=== PATIENT | female | born 1975 | race Caucasian/White ===

== ENCOUNTER 2019-08-20 10:50 | Emergency (ER) | payer OTHER ==
[2019-08-20 11:15] VITALS: TEMP 97.6; BMI 40.1
[2019-08-20] MEDS ORDERED: HYDROmorphone HCL CARPU-JECT 2 MG/1 ML DISP.SYRIN IM ONE (11:25)
[2019-08-20] MEDS ORDERED: IBUPROFEN 600 MG TABLET (FP) PO ONE ×2 (11:26→11:35)
[2019-08-20] MEDS ORDERED: HYDROmorphone HCl 2 MG/ML VIAL ONE (11:35)
--- NOTE | 2019-08-20 12:18 | PDOC ---
Documentation entered by Gini Hawley SCRIBE, acting as scribe for Yolie Pineda MD. Yolie Pineda MD: This documentation has been prepared by the Marleen flannery Brenda, SCRIBE, under my direction and personally reviewed by me in its entirety. I confirm that the documentation accurately reflects all work, treatment, procedures, and medical decision making performed by me. History of Present Illness - General Chief Complaint: Injury Stated Complaint: FALL Time Seen by Provider: 08/20/19 11:19 History Source: Patient Exam Limitations: No Limitations - History of Present Illness Initial Comments: 08/20/19 11:38 [id number] presenting with right knee pain. Patient notes falling down 3 steps, while visiting mother, landing on her knee this morning. She states that upon hitting her knee, she heard a crackle sound. Patient endorses pain on knee upon flexing toes, and notes that the pain shoots up to her right thigh, towards lateral right hip. Denies fever, chills, chest pain, SOB, palpitation, dizziness, weakness, N, V, D , abdominal pain, bladder and bowel problems, leg swelling. Denies numbness/ tingling. Allergies: None Past Medical History: DM (on metformin), HLD, HTN, Anemia Social history: Lives with family. No tobacco, ETOH or drug use. Surgical history: No surgical history. Has a sleeve scheduled. Meds: as documented in EMR Past History - Past Medical History Allergies/Adverse Reactions: Allergies Allergy/AdvReac Type Severity Reaction Status Date / Time shellfish derived Allergy Severe Swelling Verified 08/20/19 11:11 egg Allergy Intermediate Swelling Verified 08/20/19 11:11 Fish Containing Products Allergy Intermediate Swelling Verified 08/20/19 11:11 lactose Allergy Intermediate Swelling Verified 08/20/19 11:11 Milk Containing Products Allergy Intermediate Swelling Verified 08/20/19 11:11 Home Medications: Ambulatory Orders Albuterol Sulfate Inhaler - [Ventolin HFA Inhaler -] 1 - 2 inh IH QID 04/11/13 Atorvastatin Ca [Lipitor] 10 mg PO HS #0 tablet 06/23/13 Losartan Potassium [Cozaar] 50 mg PO DAILY #0 tablet 06/23/13 metFORMIN HCL [Glucophage -] 500 mg PO DAILY #0 tablet 06/23/13 Levothyroxine [Synthroid -] 200 mcg PO DAILY 07/12/14 Ibuprofen [Motrin -] 800 mg PO Q6H #30 tablet 04/13/16 Hydrochlorothiazide [Hctz -] 25 mg PO DAILY 08/20/19 Ibuprofen 600 mg PO QID PRN #20 tablet 08/20/19 Insulin Glargine,Hum.rec.anlog [Lantus Solostar PEN -] 68 units SQ HS 08/20/19 Levothyroxine [Synthroid -] 25 mg PO DAILY 08/20/19 Oxycodone HCl 10 mg PO QID PRN #12 tablet MDD 4 08/20/19 Anemia: Yes Asthma: Yes Diabetes: Yes Disorders: Yes (KIDNEY STONES) HTN: Yes Hypercholesterolemia: Yes Thyroid Disease: Yes (HYPO) - Surgical History Abdominal Surgery: Yes Appendectomy: No Cholecystectomy: Yes Orthopedic Surgery: No - Immunization History Immunization Up to Date: Yes - Psycho Social/Smoking Cessation Hx Smoking Status: No Smoking History: Unknown if ever smoked Have you smoked in the past 12 months: No Number of Cigarettes Smoked Daily: 0 Hx Alcohol Use: No Drug/Substance Use Hx: No Substance Use Type: None Hx Substance Use Treatment: No Review of Systems - Review of Systems Able to Perform ROS?: Yes Comments:: 08/20/19 11:39 Constitutional: no fevers or chills. HEENT: no headache or dizziness. CVS: no cp or syncope. Resp: no sob. Gastrointestinal: no abdominal pain, nausea or vomiting. Genitourinary: no urinary sx, hematuria. MUSCULOSKELETAL: (+) Pain on right knee. (+) Pain on right thigh. No joint swelling. No neck or back pain. SKIN: no redness or skin changes, no discharge, no rash. Hematologic: no easy bruising. NEUROLOGIC: No headache, dizziness, LOC or altered mental status. No weakness, numbness or tingling. Psych: +anxiety Allergic/Immunologic: no allergies All other systems reviewed and negative, or as documented in HPI. 08/20/19 12:16 *Physical Exam - Vital Signs Last Vital Signs Temp Pulse Resp BP Pulse Ox 97.6 F 81 18 158/98 99 08/20/19 11:11 08/20/19 11:11 08/20/19 11:11 08/20/19 11:11 08/20/19 11:11 - Physical Exam Comments: 08/20/19 11:39 General: NAD, well appearing Abdomen: soft, no tenderness, nondistended Vascular: 2+ DP pulses symmetric and equal. Back: no midline tenderness, no stepoffs, FROM MSK: (+) Right Patellar tenderness, with Crepitus, +deformity. +overlying small superficial abrasion. (+)Tenderness to right anterior thigh and lateral right hip. No prodromal symptoms. notable for soft compartments, Cap refill <2 sec.Sensation grossly intact to light touch. Neuro: alert, no focal neurologic deficits Skin: (+) Small abrasion on right anterior knee. Normal color, warm and well perfused. Cap refill <2 sec. 08/20/19 12:16 ED Treatment Course - RADIOLOGY Radiology Studies Ordered: Category Date Time Status FEMUR-RIGHT [RAD] Stat Radiology 08/20/19 11:26 Ordered HIP & PELVIS-RIGHT [RAD] Stat Radiology 08/20/19 11:26 Ordered KNEE 4 POS-RIGHT [RAD] Stat Radiology 08/20/19 11:26 Ordered - Medications Given in the ED: ED Medications Discontinued Medications Generic Name Dose Route Start Last Admin Trade Name Freq PRN Reason Stop Dose Admin Hydromorphone HCl 1 mg 08/20/19 11:25 08/20/19 11:40 Dilaudid Injection - IM 08/20/19 11:26 1 mg ONCE ONE Administration Ibuprofen 600 mg 08/20/19 11:26 08/20/19 11:40 Motrin - PO 08/20/19 11:27 600 mg ONCE ONE Administration Medical Decision Making - Medical Decision Making 08/20/19 12:17 Vital Signs Temp Pulse Resp BP Pulse Ox 97.6 F 81 18 158/98 99 08/20/19 11:11 08/20/19 11:11 08/20/19 11:11 08/20/19 11:11 08/20/19 11:11 Differential diagnosis includes patella fracture, patella dislocation, pelvic fracture, hip fracture, femur fracture, contusion, sprain, hematoma. VS reviewed, wnl Xray RLE normal joint space alignment, no acute fx or dislocation. pelvic ring intact, arthritic hip and SI joints patent, patella in place, no fracture. no sig soft tissue/effusion. unable to ambulate given analgesia. Will discharge patient with a short course of opiates. Went over the risks of the medication. Advised patient to not mix with other products containing acetaminophen, to not combine with alcohol, or other illicit drugs, to not drive or operate machinery, and to refrain from any activity that will require complete attention while taking this medication. Patient to follow-up with orthopedics as needed, primary care referral. This most likely knee sprain/contusion of the lower leg after her fall. No fractures are identified on x-ray imaging. Patient is okay with low-dose opioids as needed. Can be used for severe pain. Moderate pain control with Tylenol/ibuprofen as needed. Range of motion exercises encouraged, knee immobilizer applied, use less than 3 days. Return precautions given, stable for discharge. Patient aware and amenable to impression and plan. 08/20/19 13:17 Discharge - Discharge Information Problems reviewed: Yes Clinical Impression/Diagnosis: Knee pain Qualifiers: Chronicity: acute Laterality: right Qualified Code(s): M25.561 - Pain in right knee Right knee sprain Qualifiers: Encounter type: initial encounter Involved ligament of knee: unspecified ligament Qualified Code(s): S83.91XA - Sprain of unspecified site of right knee , initial encounter Contusion of right leg Qualifiers: Encounter type: initial encounter Qualified Code(s): S80.11XA - Contusion of right lower leg, initial encounter Condition: Improved Disposition: HOME - Admission No - Additional Discharge Information Prescriptions: Ibuprofen 600 mg PO QID PRN #20 tablet PRN Reason: Moderate Pain Oxycodone HCl 10 mg PO QID PRN #12 tablet MDD 4 PRN Reason: Severe Pain - Follow up/Referral Referrals: [facility] [place] [place] [Provider Group] [facility] [Provider Group] Richard Landrum MD [Staff Physician] - Walter Wade MD [Staff Physician] - - Patient Discharge Instructions Patient Printed Discharge Instructions: How to Prevent Falls, DI for Knee Sprain, DI for Musculoskeletal Pain, DI for Contusion Additional Instructions: ORTHO INJURY You most likely have musculoskeletal strain/sprain of your leg, knee Avoid heavy lifting or strenuous activity to minimize further injury This should heal over the next 3-5 days. crutches as needed to help with ambulation use the knee immobilizer for comfort, do not use for more than 3 days RICE rest ice elevate the affected area Rest, Ice (20 minutes at a time, 3 times a day), Compression (AZ wrap or splint ), Elevation (above the heart). Apply ice to the area for 10 minutes every 2 hours for the first 2 days after the injury to reduce swelling. continue with range of motion exercises, as this will facilitate the healing process; avoid being bed bound and immobile. If you have any worsening of symptoms, including severe pain/swelling/redness/ numbness/changes in sensation/weakness/paralysis or any other concerns please return to the Emergency Department immediately. You were given a copy of the results from any tests performed today in the Emergency Department which have results available. Show these to your doctor(s). Some of the tests we sent may not have results yet so please call or have your doctor call the Emergency Department to follow up on all results. Please continue taking your home medications as directed. Do not use alcohol when taking any medication ( especially antibiotics, tylenol or other pain medication) unless you check with the doctor or pharmacist. -May take ibuprofen 400-600mg and/or tylenol 650 to 975 mg every 6 hours as needed for mild to moderate pain, available over the counter. Please take one tablet of OXYCODONE every 6 hours, as needed for SEVERE pain. Please do not take this medication unless you absolutely need it, it is very addictive. Please do not drive, operate heavy machinery or make important decisions while on this medication, it can cloud your judgement. this can also cause constipation so make sure to stay hydrated and use stool softener as needed. Please follow up with your primary doctor(s) within the next 1 week, but seek medical care sooner if your symptoms persist or worsen. Please call as soon as possible for an appointment. If you cannot follow up with your doctor please return to the Emergency Department for any urgent issues. Follow up with your primary care physician in 1 week if symptoms persist, or with orthopedics specialists if needed, referrals have been provided. orthopedics followup only as needed. - Post Discharge Activity
[2019-08-20] MEDS ORDERED: oxyCODONE HCL 5 MG TABLET PO ONE (12:25)
[2019-08-20] MEDS ORDERED: oxyCODONE HCL 5 MG TABLET ONE (13:06)
[2019-08-20 13:17] VITALS: BP 128/78
[2019-08-20 14:06] VITALS: PULSE 68
== END 2019-08-20 14:05 | disposition home or self-care (01) ==
LOC: JER 10:50
PROC: 3E023NZ Introduction of Analgesics, Hypnotics, Sedatives into Muscle, Percutaneous Approach (ICD-10-PCS; principal; 2019-08-20)
DX: S83.8X1A Sprain of other specified parts of right knee, initial encounter (principal); S80.01XA Contusion of right knee, initial encounter; W10.8XXA Fall (on) (from) other stairs and steps, initial encounter; Y93.89 Activity, other specified; Y92.098 Other place in other non-institutional residence as the place of occurrence of the external cause; Y99.8 Other external cause status; I10 Essential (primary) hypertension; E78.5 Hyperlipidemia, unspecified; E03.9 Hypothyroidism, unspecified; E11.9 Type 2 diabetes mellitus without complications; Z79.84 Long term (current) use of oral hypoglycemic drugs; J45.909 Unspecified asthma, uncomplicated; D64.9 Anemia, unspecified; Z90.49 Acquired absence of other specified parts of digestive tract; Z87.442 Personal history of urinary calculi; Z91.012 Allergy to eggs; Z91.02 Food additives allergy status; Z91.038 Other insect allergy status; Z91.011 Allergy to milk products; Z91.013 Allergy to seafood
CPT/HCPCS: 73523-TC-FY; 73552-TC-RT-FY; 73564-TC-RT-FY; 99282-25